=== PATIENT | female | born 1975 | race Caucasian/White ===

== ENCOUNTER 2022-08-11 19:30 | Emergency (ER) | payer SELFPAY ==
[~2022-08-11] VITALS: Ht 160 cm; Wt 72.5 kg
[2022-08-11] MEDS ORDERED: IBUP-2029 MT (22:28)
[2022-08-11] MEDS ORDERED: IBUPROFEN 600MG TABLET PO ONE (22:30)
[2022-08-11 23:00] VITALS: BP 216/102
== END 2022-08-11 23:15 | disposition home or self-care (01) ==
LOC: ER 19:30
DX: S60.221A Contusion of right hand, initial encounter (principal); I10 Essential (primary) hypertension; W18.39XA Other fall on same level, initial encounter; Y93.89 Activity, other specified; Y92.89 Other specified places as the place of occurrence of the external cause; Y99.8 Other external cause status
CPT/HCPCS: 73090; 73110; 73130; 81025; 99284; Z7610